=== PATIENT | female | born 1985 | race Native Hawaiian/Other Pacific Islander ===

== ENCOUNTER 2017-08-21 16:21 | Inpatient (IN) | payer OTHER ==
[2016-06-25 09:30] VITALS: BMI 32.8
[2017-08-21] MEDS ORDERED: Lactated Ringer's 1,000 ML IV SCH (16:45)
[2017-08-21] MEDS ORDERED: Penicillin G 5 Million Unit Vial IVPB ONE (16:45)
--- NOTE | 2017-08-21 16:52 | OBHP ---
Datetime: 08/21/2017 16:49 IP Adm Impression: , intrauterine ; Active labor IP Admit Plan: Admit to unit; Initiate labor protocol Admit Comment, IP Provider: chief complaint-pelvic pressure HPI at 36.6 wga with c/o pelvic pressuer and [id number] sinec alst night patuent denies vaginal bleeidng or osos of fluid course uncomplicated PMH denies PSH dneies OBGYN HX ; NVDX3 Social hx denies tobacco,alcohol or illicit drug us Exam see exam section A/P at 36.6 wga in labor -start marleni for gb sporphylaxis -see orders dr veloz aware Pelvic Type - PN: Adequate Extremities - PN: Normal Abdomen - PN: Normal Back - PN: Normal Lungs - PN: Normal Heart - PN: Normal Neurologic - PN: Normal General - PN: Normal Weight - Estimated: 3000 Presentation-Admit: Vertex Contraction Comments Provider: irregular Gestation - Est Wks by US: 36.6 IP Hx Assessment: The History has been Reviewed and is Current Vital Signs Provider: Reviewed; Within Normal Limits IP Chief Complaint: Uterine contractions FHR Category Provider Fetus A: Category I Dilatation, Provider: 4 Effacement, Provider: 70 Station, Provider: -2 Genitourinary Exam: Normal DTRs - PN: Normal
[2017-08-21 18:49] LABS: BASO % 0.4 % (0.0-2.0); EOS # 0.2 K/uL (0.0-0.7); EOS % 1.9 % (0.0-4.0); HEMATOCRIT 34.6 % (34.0-47.0); LYMPH # 3.2 K/uL (1.0-4.3); LYMPH % 31.3 % (20.0-40.0); MEAN CORPUSCULAR HEMOGLOBIN 27.1 pg (27.0-31.0); MEAN CORPUSCULAR HGB CONC 33.1 g/dL (33.0-37.0); MEAN PLATELET VOLUME 8.8 fL (7.2-11.7); MONO # 0.5 K/uL (0.0-0.8); MONO % 4.8 % (0.0-10.0); NRBC % 0.1 % (0.0-2.0); RED CELL DISTRIBUTION WIDTH 15.1 % (11.5-14.5); WHITE BLOOD COUNT 10.1 K/uL (4.8-10.8)
[2017-08-21 18:54] LABS: CHLORIDE 102 mmol/L (98-107)
[2017-08-21 18:55] LABS: POTASSIUM 3.3 mmol/L (3.6-5.2); SODIUM 133 mmol/L (132-148)
[2017-08-21 18:57] LABS: ALB/GLOB RATIO 0.8 (1.0-2.1); ALKALINE PHOSPHATASE 195 U/L (38-126); AST/SGOT 24 U/L (14-36); BILIRUBIN,TOTAL 0.3 mg/dL (0.2-1.3); BLOOD UREA NITROGEN 6 mg/dL (7-17); CARBON DIOXIDE 22 mmol/L (22-30); GFR AFRICAN-AMERICAN > 60; RBC URINE 9 /hpf (0-3); TOTAL PROTEIN 7.2 g/dL (6.3-8.3); URINE BACTERIA FEW (<OCC); URINE BILIRUBIN NEGATIVE (NEGATIVE); URINE BLOOD 1+ (NEGATIVE); URINE CALCIUM OXALATE CRYSTALS MOD /hpf (<OCC); URINE COLOR Yellow (YELLOW); URINE GLUCOSE (UA) NORMAL (Normal); URINE KETONE NEGATIVE (NEGATIVE); URINE LEUKOCYTE ESTERASE 3+ Leu/uL (Negative); URINE PROTEIN 1+ mg/dL (NEGATIVE); WBC URINE 17 /hpf (0-5)
[2017-08-21 18:58] LABS: ALT/SGPT 31 U/L (9-52); GLUCOSE,RANDOM 78 mg/dL (65-105)
--- NOTE | 2017-08-21 22:19 | OBADHP ---
Datetime: 08/21/2017 22:18 Vital Signs Provider: Reviewed; Within Normal Limits Datetime: 08/21/2017 22:15 IP Hx Assessment: The History has been Reviewed and is Current IP Chief Complaint: Uterine contractions EGA AdmitDate IP: 36.6 IP Admit Plan: Admit to unit Datetime: 08/21/2017 16:49 Admit Comment, IP Provider: chief complaint-pelvic pressure HPI at 36.6 wga with c/o pelvic pressuer and [id number] sinec alst night patuent denies vaginal bleeidng or osos of fluid course uncomplicated PMH denies PSH dneies OBGYN HX ; NVDX3 Social hx denies tobacco,alcohol or illicit drug us Exam see exam section A/P at 36.6 wga in labor -start marleni for gb sporphylaxis -see orders dr veloz aware agree with above Shanti Veloz Pelvic Type - PN: Adequate Extremities - PN: Normal Abdomen - PN: Normal Back - PN: Normal Lungs - PN: Normal Heart - PN: Normal Neurologic - PN: Normal General - PN: Normal Weight - Estimated: 3000 Presentation-Admit: Vertex FHR - Baseline A Provider: 135 Contraction Comments Provider: irregular Gestation - Est Wks by US: 36.6 NICHD Variability Prov Fetus A: Moderate 6-25bpm FHR Category Provider Fetus A: Category I NICHD Decel Fetus A IP Provider: None Dilatation, Provider: 4 Effacement, Provider: 70 Station, Provider: -2 Genitourinary Exam: Normal DTRs - PN: Normal IP Adm Impression: , intrauterine ; Active labor
--- NOTE | 2017-08-21 22:22 | OBPN ---
Datetime: 08/21/2017 22:18 IP Progress Impression: Normal progression of labor IP Informed Consent Obtain: Vaginal Delivery IP Progress Plan: Continue present management Contraction Comments Provider: q 5 min FHR - Baseline A Provider: 135 Gestation - Est Wks by US: 36.6 Presentation-Admit: Vertex IP Progress Note Comment: Pt seen examined c/o pressure . pt dneis lof, vb, +FM VSS EMF: Cat I TOCO: q 5 in VE: 60/-2 VTX Intact A/P @ 36.6 wks GA in active labor -cont current mangament -gbs prophylaxis - Vital Signs Provider: Reviewed; Within Normal Limits FHR Category Provider Fetus A: Category I NICHD Variability Prov Fetus A: Moderate 6-25bpm Dilatation, Provider: 6 Effacement, Provider: 60 Station, Provider: -2 Datetime: 08/21/2017 16:49 Weight - Estimated: 3000 NICHD Decel Fetus A IP Provider: None
[2017-08-21] MEDS ORDERED: Oxytocin 30 UNIT 30 UNITS/500 ML BAG IV SCH (22:30)
[2017-08-22] MEDS ORDERED: Oxytocin 30 UNIT 30 UNITS/500 ML BAG IV ONE (00:01)
[2017-08-22] MEDS ORDERED: Bupivacaine HCl 0.25% PF (10 ml) Inj ONE (00:54)
[2017-08-22] MEDS ORDERED: Bupivacaine 0.125%/FentaNYL 200 ML EPI ONE (00:55)
[2017-08-22] MEDS ORDERED: Benzocaine/Menthol 20%-0.5% Topical Spray (60 ml) TOP PRN (04:06)
[2017-08-22] MEDS ORDERED: Oxycodone/Acetaminophen 5/325 mg Tab PO PRN ×2 (04:06)
--- NOTE | 2017-08-22 04:07 | OBPN ---
Datetime: 08/22/2017 04:03 IP Progress Impression: Normal progression of labor IP Informed Consent Obtain: Vaginal Delivery IP Progress Plan: Continue present management; Anticipate Vaginal Delivery Contraction Comments Provider: q 3 min FHR - Baseline A Provider: 145 Gestation - Est Wks by US: 37.0 Presentation-Admit: Vertex IP Progress Note Comment: pt seen and examine dc/o pressure. s/p epdural VSS VE: /0 E:M Cat I pervious variable improved iwt hoxgyen ,left lateral, IVH ANGI: q 2-3 min Pit 2 mu/min A/P @ 37 wks GA in active labor -start pushing -anticipate -cont current manamgnet Vital Signs Provider: Reviewed; Within Normal Limits FHR Category Provider Fetus A: Category I NICHD Variability Prov Fetus A: Moderate 6-25bpm Dilatation, Provider: 10 Effacement, Provider: 100 Station, Provider: 0 Datetime: 08/21/2017 22:18 Membranes, Provider: Intact
[2017-08-22] MEDS ORDERED: Oxytocin 30 UNIT 30 UNITS/500 ML BAG IV SCH (04:15)
[2017-08-23 08:04] LABS: BASO % 0.4 % (0.0-2.0); EOS # 0.3 K/uL (0.0-0.7); EOS % 2.7 % (0.0-4.0); HEMATOCRIT 32.2 % (34.0-47.0); LYMPH # 3.3 K/uL (1.0-4.3); LYMPH % 32.7 % (20.0-40.0); MEAN CELL VOLUME 82.9 fL (81.0-99.0); MEAN CORPUSCULAR HEMOGLOBIN 28.3 pg (27.0-31.0); MEAN CORPUSCULAR HGB CONC 34.1 g/dL (33.0-37.0); MEAN PLATELET VOLUME 8.8 fL (7.2-11.7); MONO # 0.4 K/uL (0.0-0.8); MONO % 3.7 % (0.0-10.0); RED CELL DISTRIBUTION WIDTH 15.2 % (11.5-14.5); WHITE BLOOD COUNT 10.2 K/uL (4.8-10.8)
[2017-08-23 08:06] VITALS: O2SAT 100
[2017-08-23] MEDS ORDERED: Influenza Vaccine 60 mcg/0.5 mL SYR (4YR UP) IM ONE (08:40)
[2017-08-23 14:22] VITALS: BP 122/78; PULSE 87; RESP 18; TEMP 98.2
== END 2017-08-23 10:20 | disposition home or self-care (01) | DRG 775 ==
LOC: C.EROB 16:21 → C.4D 16:45 → C.4M 08-22 09:13
PROVIDERS: ADMIT Obstetrics & Gynecology; ATTEND Obstetrics & Gynecology
PROC: 10E0XZZ Delivery of Products of Conception, External Approach (ICD-10-PCS; principal; 2017-08-22)
DX: O60.14X0 Preterm labor third trimester with preterm delivery third trimester, not applicable or unspecified (principal); Z3A.37 37 weeks gestation of pregnancy; Z23 Encounter for immunization; Z37.0 Single live birth

== ENCOUNTER 2019-01-19 14:47 | Day surgery (SDC) | payer OTHER ==
[2019-01-19 14:48] VITALS: BMI 32.8
[2019-01-19] MEDS ORDERED: Lactated Ringer's 1,000 ML IV SCH (15:15)
--- NOTE | 2019-01-19 15:17 | CP.SDSHP ---
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 admit for same day. pt culse don suction dxck, consent obatined. preop labs. npo, ivf. type and screen - Date & Time Date: 01/19/19 Time: 15:15 Short Stay Discharge - Short Stay Discharge Admitting Diagnosis/Reason for Visit: SENT BY PMD Disposition: HOME/ ROUTINE Follow-up: 2 weeks Instructions: Dilation and Curettage
[2019-01-19 15:48] LABS: BASO % 0.5 % (0.0-2.0); EOS # 0.3 K/uL (0.0-0.7); EOS % 3.4 % (0.0-4.0); LYMPH # 3.1 K/uL (1.0-4.3); LYMPH % 36.5 % (20.0-40.0); MEAN CORPUSCULAR HEMOGLOBIN 27.7 pg (27.0-31.0); MEAN CORPUSCULAR HGB CONC 32.6 g/dL (33.0-37.0); MEAN PLATELET VOLUME 8.3 fL (7.2-11.7); MONO # 0.4 K/uL (0.0-0.8); MONO % 4.9 % (0.0-10.0); NEUT # 4.7 K/uL (1.8-7.0); NEUT % 54.7 % (50.0-75.0); NRBC % 0.1 % (0.0-2.0); RBC 4.74 Mil/uL (3.80-5.20); WHITE BLOOD COUNT 8.6 K/uL (4.8-10.8)
[2019-01-19 15:51] LABS: HEMOGLOBIN 13.1 g/dL (11.0-16.0)
[2019-01-19 15:56] LABS: INR 1.2; PROTHROMBIN TIME 13.1 SECONDS (9.7-12.2)
[2019-01-19 16:01] LABS: ALB/GLOB RATIO 1.3 (1.0-2.1); ALBUMIN 4.8 g/dL (3.5-5.0); ALT/SGPT 11 U/L (9-52); AST/SGOT 26 U/L (14-36); BLOOD UREA NITROGEN 10 mg/dL (7-17); CALCIUM 9.6 mg/dl (8.6-10.4); GFR NON-AFRICAN AMERICAN > 60
--- NOTE | 2019-01-19 16:02 | RAD ---
Date of service: 01/19/2019 HISTORY: surgery clear COMPARISON: No prior. FINDINGS: LUNGS: No active pulmonary disease. PLEURA: No significant pleural effusion identified, no pneumothorax apparent. CARDIOVASCULAR: No aortic atherosclerotic calcification present. Normal cardiac size. No pulmonary vascular congestion. OSSEOUS STRUCTURES: No significant abnormalities. VISUALIZED UPPER ABDOMEN: Normal. OTHER FINDINGS: Incidental note made of a few small elliptical shaped radiopaque densities overlying the base of the neck of uncertain etiology. Findings could be overlying surface artifact. Clinical correlation recommended. Radiographs of the neck could be obtained if further evaluation is required IMPRESSION: No acute cardiopulmonary disease.. Few small elliptical shaped radiopaque densities overlying the base of the neck of uncertain etiology. Findings could be overlying surface artifact. Clinical correlation recommended. Radiographs of the neck could be obtained if further evaluation is required
--- NOTE | 2019-01-19 16:03 | C.PDOC ---
History Of Present Illness 33 year old female 11 weeks , p/w 1 week of vaginal bleeding and presented to ED for suction D+C w/ Dr. Veloz. Pt was seen as outpatient by Dr. veloz and told she had an incomplete AB and forwarded to the ED for D+C. She den ies any fall or trauma and not current pain. She notes vaginal d/c, non worsened over the past week. No fever, chills or night sweats. No lightheadedness / chest pain or shortness of breath. No other complaints. Time Seen by Provider: 01/19/19 15:23 Chief Complaint (Nursing): Female Genitourinary Past Medical History Vital Signs: Last Vital Signs Temp 98.4 F 01/19/19 15:07 Pulse 73 01/19/19 15:07 Resp 18 01/19/19 15:07 BP 125/79 01/19/19 15:07 Pulse Ox 100 01/19/19 15:07 - Medical History PMH: Denies: Depression, Diabetes, HTN - [facility] Procedures DELIVERY OF PRODUCTS OF CONCEPTION, EXTERNAL APPROACH (08/21/17) REPAIR PERINEUM SKIN, EXTERNAL APPROACH (06/24/16) Family History: States: Unknown Family Hx - Social History Hx Alcohol Use: No Hx Substance Use: No Review Of Systems Constitutional: Negative for: Fever, Chills, Weakness, Malaise Eyes: Negative for: Pain, Eyelid Inflammation ENT: Negative for: Ear Pain, Ear Discharge, Nose Congestion, Mouth Pain Cardiovascular: Negative for: Chest Pain, Palpitations, Edema, Light Headedness Respiratory: Negative for: Cough, Shortness of Breath, Hemoptysis, SOB with Excertion Gastrointestinal: Negative for: Nausea, Vomiting, Abdominal Pain, Constipation, Melena Genitourinary: Positive for: Vaginal Bleeding. Negative for: Dysuria, Freque ncy, Incontinence, Hematuria Musculoskeletal: Negative for: Neck Pain, Shoulder Pain, Arm Pain Skin: Negative for: Rash, Lesions Neurological: Negative for: Weakness, Numbness Physical Exam - Physical Exam Appears: Well, Non-toxic, No Acute Distress Skin: Normal Color, Warm, Dry Head: Atraumatic Eye(s): bilateral: Normal Inspection, PERRL, EOMI Nose: Normal Oral Mucosa: Moist Tongue: Normal Appearing Lips: Normal Appearing Teeth: Normal Dentition Gingiva: Normal Appearing Throat: Normal, No Erythema, No Exudate Neck: Normal, Normal ROM, Supple Cardiovascular: Rhythm Regular Respiratory: Normal Breath Sounds Gastrointestinal/Abdominal: Normal Exam Back: Normal Inspection, No CVA Tenderness, No Vertebral Tenderness Extremity: Normal ROM Neurological/Psych: Oriented x3, Normal Speech, Normal Cognition ED Course And Treatment - Laboratory Results Result Diagrams: 01/19/19 15:40 01/19/19 15:40 Lab Results: PT 13.1 SECONDS (9.7-12.2) H 01/19/19 15:40 INR 1.2 01/19/19 15:40 APTT 32 SECONDS (21-34) 01/19/19 15:40 Total Bilirubin 0.3 mg/dL (0.2-1.3) 01/19/19 15:40 AST 26 U/L (14-36) 01/19/19 15:40 ALT 11 U/L (9-52) 01/19/19 15:40 Alkaline Phosphatase 63 U/L (38-126) 01/19/19 15:40 Total Protein 8.5 g/dL (6.3-8.3) H 01/19/19 15:40 Albumin 4.8 g/dL (3.5-5.0) 01/19/19 15:40 Globulin 3.7 gm/dL (2.2-3.9) 01/19/19 15:40 Albumin/Globulin Ratio 1.3 (1.0-2.1) 01/19/19 15:40 O2 Sat by Pulse Oximetry: 100 Medical Decision Making Medical Decision Makin33 year old female p/w referral from obgyn DR. Veloz for suction d/c for incomplete AB. Pt in NAD, denies any current complaints other than vaginal bleeding. Abd non-ttp, to go to [facility] w/ Dr. veloz. Pt agreeable to plan. Disposition - Disposition Disposition: HOSPITALIZED Disposition Time: 16:03 Condition: STABLE - Clinical Impression Clinical Impression: Incomplete
[2019-01-19] MEDS ORDERED: Midazolam 2 MG/2 ML VIAL ONE (17:18)
[2019-01-19] MEDS ORDERED: Propofol 10 mg/ml Inj (20 ML) ONE (17:18)
[2019-01-19] MEDS ORDERED: Doxycycline 100 mg Inj ONE (17:23)
[2019-01-19] MEDS ORDERED: Oxytocin 10 Units/ml Inj ONE (17:23)
[2019-01-19] MEDS ORDERED: HYDROmorphone 0.5 mg/0.5 ml ISec IVP PRN (18:33)
[2019-01-19 19:44] VITALS: BP 103/60; PULSE 96; RESP 17; TEMP 97.5
--- NOTE | 2019-01-20 03:26 | OP ---
PROCEDURE DATE: 01/19/2019 PREOPERATIVE DIAGNOSIS: Incomplete . POSTOPERATIVE DIAGNOSIS: Incomplete . PROCEDURE PERFORMED: Suction, dilation and curettage, first trimester. OPERATIVE FINDINGS: Twelve-week sized anteverted uterus. Cervical os dilated 2 cm with moderate products of conception with large blood clots noted in the cervical os and the vaginal fornix, 10 mm suction curette used, products of conception sent, cytogenetic analysis sent as per the patient's desire. ESTIMATED BLOOD LOSS: 25 mL. COMPLICATIONS: None. INDICATION: The patient is a 33-year-old 5, para 4, who was thought to be 15 weeks in which no heart rate was detected. A bedside sonogram was performed. This was on 01/18/2019 and there was no heart rate. The patient had a second confirmation scan with [facility] office, no heart rate was noted. The patient has reported spotting after one week but started heavy bleeding earlier today and came to the ER. The patient reports heavy bleeding, more than two pads per an hour, with some cramping, somewhat alleviated with [id number] medication. The patient denies fevers, reports some discharge. The patient was consented to nonconservative, medical versus surgical management and desired surgical management given the heavy nature of the bleeding. Risks, benefits, alternatives and indications of the procedure were discussed with the patient. DESCRIPTION OF PROCEDURE: The patient was taken to the operating room, where she was given general anesthesia. Once it was found to be adequate, she was placed on the operating table in the dorsal supine position with the legs supported using stirrups. The patient was prepped and draped in the usual sterile fashion. A time-out was performed confirming correct patient and correct procedure. Bimanual exam was performed with the above-mentioned findings. A Nova retractor was placed in the anterior and posterior fornix of the vagina. A single-tooth tenaculum was placed in the anterior lip of the cervix. The cervix was already sequentially dilated and there was moderate products of conception at the cervical os that were removed and sent to Pathology on [facility]. Following this, the suction curette was advanced through the fundus. Suction was then activated and rotated at 360 degrees three times until majority of the products was removed. A gentle curettage was done. Following this, the suction curette was then reactivated and entered and all products were removed, and there were gross air bubbles noted within the suction cavity. All instruments were removed. There was good hemostasis at the tenaculum puncture site. Bimanual exam was performed. There was good hemostasis noted. All instruments were removed. At the end of the procedure, all needle, sponge and instrument counts were noted to be correct x2. The patient tolerated the procedure well and was transferred to the recovery room in stable condition. Violet Morrell MD
[2019-01-20 13:16] VITALS: O2SAT 100
== END 2019-01-19 20:00 | disposition home or self-care (01) ==
LOC: C.ER 14:47 → C.SDS 15:12
PROVIDERS: ATTEND Obstetrics & Gynecology
DX: O03.4 Incomplete spontaneous abortion without complication (principal)
CPT/HCPCS: 59812; 71045; 80053; 84702; 85025; 85610; 85730; 86850; 86900; 88233; 88262; 88305; 96360; 99285; J1885; J2250; J2405; J2590; J2704; J3010; J7120